=== PATIENT | male | born 1955 | race African-American/Black ===

== ENCOUNTER 2018-01-28 17:21 | Emergency (ER) | payer OTHER ==
[~2018-01-28] VITALS: Ht 175.3 cm; Wt 103.6 kg
[2018-01-28 17:23] VITALS: BP 132/70
[2018-01-28] MEDS ORDERED: HYDROcodone/APAP 5/325 TABLET PO ONE (18:00)
[2018-01-28] MEDS ORDERED: DIAZEPAM 5 MG TABLET PO ONE (18:00)
[2018-01-28] MEDS ORDERED: KETOROLAC 30 MG/1 ML IM ONE (18:00)
[2018-01-28] MEDS ORDERED: HYDROcodone/APAP 5/325 TABLET ONE (18:08)
[2018-01-28] MEDS ORDERED: DIAZEPAM 5 MG TABLET ONE (18:08)
[2018-01-28] MEDS ORDERED: KETOROLAC 30 MG/1 ML ONE (18:08)
[2018-01-28] MEDS ORDERED: LISI2.5T PO (18:37)
[2018-01-28] MEDS ORDERED: METF500T4 PO (18:37)
[2018-01-28] MEDS ORDERED: SIMV5TAB5 PO (18:37)
[2018-01-28] MEDS ORDERED: CHOL400C PO (18:38)
[2018-01-28] MEDS ORDERED: VITA1CAP PO (18:38)
[2018-01-28] MEDS ORDERED: ATOR-2 PO (18:39)
== END 2018-01-28 19:27 | disposition home or self-care (01) ==
LOC: ED 18:38
DX: S33.5XXA Sprain of ligaments of lumbar spine, initial encounter (principal); S16.1XXA Strain of muscle, fascia and tendon at neck level, initial encounter; S60.041A Contusion of right ring finger without damage to nail, initial encounter; I10 Essential (primary) hypertension; E11.9 Type 2 diabetes mellitus without complications; V43.52XA Car driver injured in collision with other type car in traffic accident, initial encounter; Y93.89 Activity, other specified; Y99.8 Other external cause status; Y92.410 Unspecified street and highway as the place of occurrence of the external cause
CPT/HCPCS: 72020; 72050; 72110; 73140; 96372; 99284; J1885